=== PATIENT | female | born 1990 | race African-American/Black ===

== ENCOUNTER → 2018-02-06 19:20 | Outpatient (CLI) | payer OTHER, SELFPAY ==
[2018-02-09 14:56] LABS: HPV Reflexed? NOT INDICATED
== END ==
PROVIDERS: Visit Provider Obstetrics & Gynecology
DX: Z12.4 Encounter for screening for malignant neoplasm of cervix (principal)
CPT/HCPCS: 88175; G0145

== ENCOUNTER → 2019-02-07 | Outpatient (CLI) | payer OTHER, SELFPAY ==
[2016-12-20 10:01] VITALS: BMI 42.8
[2019-02-12 16:20] LABS: HPV Reflexed? NOT INDICATED
== END | disposition home or self-care (01) ==
LOC: LABSPEC 15:05
PROVIDERS: Visit Provider Obstetrics & Gynecology
DX: Z12.4 Encounter for screening for malignant neoplasm of cervix (principal)
CPT/HCPCS: 88175; G0145

== ENCOUNTER → 2022-07-27 | Outpatient (CLI) | payer OTHER, SELFPAY ==
[2022-07-27 17:01] LABS: Hematocrit 37.1 % (37-47); Hemoglobin 11.7 g/dL (12.0-15.0); Mean Corp Hgb Conc 31.5 g/dL (32-36); Mean Corpuscular Hgb 29.3 pg (27.0-32.0); Mean Platelet Vol. 10.2 fl (6.2-12.0); Platelet Count 318 K/mm3 (150-450); RBC Distribution Width CV 11.9 % (11.6-14.6); RBC Distribution Width SD 40.8 fl (35.1-43.9); Red Blood Count 3.99 M/mm3 (4.2-5.4); White Blood Count 8.5 K/mm3 (4.4-11.0)
[2022-07-27 17:51] LABS: Estradiol 96.6 pg/mL; Follicle Stimulating Hormone 3.2 mIU/mL; Luteinizing Hormone 11.6 mIU/mL; Prolactin 8.8 ng/mL; T4 Free Direct 0.91 ng/dL (0.76-1.46); Thyroid Stim Hormone (TSH) 1.45 uIU/mL (0.358-3.74)
[2022-08-04 11:09] LABS: Testosterone, Free 0.32 ng/dL (0.10-0.85); Testosterone, Total 18 ng/dL (13-71)
[2022-08-04 17:11] LABS: DHEA Sulfate 93.6 ug/dL (84.8-378.0)
[2022-08-05 13:57] LABS: HPV Reflexed? NOT INDICATED
== END | disposition home or self-care (01) ==
LOC: WOBLAB 16:27
PROVIDERS: Visit Provider Student in an Organized Health Care Education/Training Program
DX: Z12.4 Encounter for screening for malignant neoplasm of cervix (principal); N93.9 Abnormal uterine and vaginal bleeding, unspecified
CPT/HCPCS: 36415; 82627; 82670; 83001; 83002; 84146; 84402; 84403; 84439; 84443; 85027; 88175; 82626; G0145

== ENCOUNTER → 2022-08-31 | Outpatient (CLI) | payer OTHER, SELFPAY ==
--- NOTE | 2022-08-31 11:45 | EMB_PTH ---
PATIENT: RENATO DE JESUS LOC: [facility] U#:[id number] AGE/SX: 32/F ROOM: RE08/31/[address]: Dr. Mary Hart DO : 1990 BED: DIS: 08/31/2022 SPEC #: [id number] RECD: 08/31/22 12:29 STATUS: STEVE RETeresa #: [id number] VALERIA: 08/31/22 11:[address]: Mary Hart DEPT: SURGICAL PATHOLOGY RECD BY: Cristy Rodríguez ENTERED: 09/01/22 11:50 SP TYPE: ENDOM BX/C TYSHAWN DR: Alina Primary Care Phys Tissues: Endometrium, NOS Procedures: Surgery Specimen Level IV HEADER OPERATION: Endometrial biopsy PRE-OP DIAGNOSIS: Abnormal uterine bleeding TISSUE SUBMITTED: Endometrial biopsy MICROSCOPIC DIAGNOSIS Endometrium, biopsy: Secretory endometrium. AM:genia 09/02/2022 MICROSCOPIC DESCRIPTION Slides are reviewed. GROSS DESCRIPTION Received in fixative is one container labeled with the patient's name and designated endometrial biopsy. The specimen consists of multiple irregular fragments of pink soft tissue that in aggregate measure 2.5 x 2.5 x 0.2 cm. The specimen is totally submitted in one cassette. / SJ:genia 09/01/2022 TC:5 CPT: 20930
== END | disposition home or self-care (01) ==
LOC: LABSPEC 12:21
PROVIDERS: Visit Provider Student in an Organized Health Care Education/Training Program
DX: N93.9 Abnormal uterine and vaginal bleeding, unspecified (principal)
CPT/HCPCS: 88305

== ENCOUNTER 2022-11-24 06:01 | Day surgery (SDC) | payer OTHER, SELFPAY ==
[2022-11-18 10:15] LABS: Hematocrit 37.8 % (37-47); Hemoglobin 12.1 g/dL (12.0-15.0); Mean Corpuscular Hgb 29.2 pg (27.0-32.0); Mean Corpuscular Volume 91.3 fL (81-99); Mean Platelet Vol. 10.2 fl (6.2-12.0); Platelet Count 271 K/mm3 (150-450); RBC Distribution Width CV 12.3 % (11.6-14.6); RBC Distribution Width SD 40.7 fl (35.1-43.9); Red Blood Count 4.14 M/mm3 (4.2-5.4); White Blood Count 6.2 K/mm3 (4.4-11.0)
[2022-11-24] VITALS (8 sets, daily range): BP systolic 112–138; BP diastolic 66–88; PULSE 53–71; RESP 16–18; TEMP 36.2–36.8; O2SAT 94–100; BMI 36.9
[2022-11-24 06:27] LABS: Internal QC Validated? YES +Cl - CLEAR BKGD; Pregnancy, Urine Negative Negative
[2022-11-24] MEDS: Lactated Ringers 1,000 ML 15 ML IV (06:39)
--- NOTE | 2022-11-24 06:58 | HP.PCM.OB_ITS ---
History and Physical Date of Admission: 11/24/22 HPI: 32-year-old female with dermoid cyst and desire for sterilization plan for laparoscopic left ovarian cystectomy, possible oophorectomy, bilateral salpingectomy, dilation curettage. Denies headache or vision changes, chest pain or shortness of breath, nausea or vomiting, fevers or chills, diarrhea or constipation. [employer] history: Medical history: Denies Surgical history: Denies Medications: Denies Family history: Denies history of blood clots or bleeding disorders Social history: Denies tobacco, alcohol, drug use Allergies: Macrobid causes rash Review of system: Negative otherwise stated above Physical exam: Blood pressure 112/67, heart rate 71, respiratory rate 18, temp 97.7 ?F, oxygen saturation 100% on room air General: No acute distress HEENT: Normal cephalic/atraumatic, PERRLA Cardiorespiratory: No increased effort, clear to auscultation bilaterally, re gular rate and rhythm Abdomen: Soft, nontender, nondistended Extremities: No edema Neurologic: Cranial nerves II through XII grossly intact Musculoskeletal: Strength 5 out of 5 throughout extremities Assessment/plan: 32-year-old female plan for laparoscopic left ovarian cystectomy, possible oophorectomy, bilateral salpingectomy and hysteroscopy and dilation and curettage for dermoid cyst and abnormal uterine bleeding. All risk, benefits, alternatives discussed with the patient. Risks include but are not limited to: Risk of bleeding to the point of transfusion, infection, injury to surrounding tissue including bowel/bladder/major abdominal vessels/uterine perforation, VTE, ICU admission, chance of mini laparotomy. Understands risk of regret and ectopic with salpingectomy. Patient aware and consented.
--- NOTE | 2022-11-24 07:30 | EMB_PTH ---
PATIENT: RENATO DE JESUS LOC: [facility] [place] U#:[id number] AGE/SX: 32/F ROOM: RE11/24/[address]: Dr. Mary Hart DO : 1990 BED: DIS: 11/24/2022 SPEC #: [id number] RECD: 11/24/22 10:14 STATUS: STEVE RETeresa #: [id number] VALERIA: 11/24/22 07:[address]: Mary Hart DEPT: SURGICAL PATHOLOGY RECD BY: Cristy Rodríguez ENTERED: 11/24/22 11:42 SP TYPE: ENDOM BX/C TYSHAWN DR: Dr. Irma Alcala MD Tissues: Endometrium, NOS Procedures: Surgery Specimen Level IV HEADER OPERATION: Diagnostic laparoscopic, lysis of adhesions, hysteroscopy D & C PRE-OP DIAGNOSIS: Dermoid cyst, abnormal bleeding TISSUE SUBMITTED: Endometrial curettings MICROSCOPIC DIAGNOSIS Endometrial curettings: Secretory endometrium. SJ:genia 11/25/2022 MICROSCOPIC DESCRIPTION Slides are reviewed. GROSS DESCRIPTION Received in fixative is one container labeled with the patient's name and designated endometrial curettings. The specimen consists of multiple irregular fragments of light aguilar soft tissue that in aggregate measure 2.5 x 2.5 x 0.3 cm. The specimen is totally submitted in one cassette. / ARACELIS:genia 11/24/2022 TC:4 CPT: 14851
--- NOTE | 2022-11-24 08:13 | PCM.OPRPT ---
Report of Operation Date of Procedure: 11/24/22 Pre-Operative Diagnosis: Abnormal uterine bleeding, dermoid cyst Post-Operative Diagnosis: Abnormal uterine bleeding, bilateral ovarian cysts, extensive colonic adhesions Surgery/Procedure Performed:: Hysteroscopy, dilation and curettage, laparoscopic lysis of adhesion Description of Surgical Findings:: Normal-appearing external genitalia, no uterine descensus. Thin endometrial lining. Intra-abdominally: Large bilateral ovarian cysts. Free right fallopian tube from cornua to fimbriated. Adhesion of left fallopian tube to left ovary. Omental adhesions to anterior abdominal wall. Bowel adhesions to left pelvic sidewall. Bowel adhesion to left ovarian cyst, directly bowel to cyst. Type of Anesthesia: General Specimen's removed: Endometrial curettings Estimated Blood Loss (mL): 10 cc Fluids Replaced: 1000 cc Description of Procedure: Indication/risk/benefits: 32-year-old female plan for laparoscopic left ovarian cystectomy, possible oophorectomy, bilateral salpingectomy and hysteroscopy and dilation and curettage for dermoid cyst and abnormal uterine bleeding.? All risk, benefits, alternatives discussed with the patient.? Risks include but are not limited to: Risk of bleeding to the point of transfusion, infection, injury to surrounding tissue including bowel/bladder/major abdominal vessels/uterine perforation, VTE, ICU admission, chance of mini laparotomy.? Understands risk of regret and ectopic with salpingectomy.? Patient aware and consented. Procedure: Patient taken the operating room and placed under general anesthesia. Patient placed in the dorsal lithotomy position prepped and draped in the usual sterile fashion. Marlow catheter placed. Weighted speculum placed posterior vagina and Key retractor used to visualize the cervix. Anterior lip of cervix grasped single-tooth tenaculum. Cervix sequentially dilated. Hysteroscope placed through cervical canal and inspection of endometrial cavity was completed noting bilateral tubal ostia and thin endometrial cavity. Hysteroscope removed. Curettage completed in 360 degree manner. Sargis manipulator placed. Weighted speculum removed. Gloves changed and attention turned to the anterior abdominal wall. Infraumbilical incision made with scalpel and trocar placed under direct visualization. Abdomen insufflated. Right and left lower quadrant trocars placed under direct visualization. Inspection of the abdominal cavity noted findings as above. Filmy adhesions noted of the left colon to left pelvic sidewall, lysed with laparoscopic scissors. Unable to remove left fallopian tube due to adhesions, therefore bilateral salpingectomy was not done at this time. Decision to abort procedure was made based on extensive colon adhesions. Abdomen desufflated, trocars removed. Skin closed with subcuticular stitch and skin glue. Sargis manipulator removed. Cervix hemostatic. Marlow catheter removed. At the end of the procedure all needle, lap, sponge counts were correct. Urine output: 400 cc clear urine Complications None
--- NOTE | 2022-11-24 08:24 | PCM.DC ---
Discharge Instructions Diet Discharge Diet: No restrictions Activity Discharge Activity: Return to Normal Activity and May Shower May resume sexual activity in: 2 weeks Weight Bearing Status: Weight bearing as tolerated Lifting Restrictions: No greater than 15 pounds Dressing / Incision Call your doctor if your incision/area has: Continuous Slow Oozing, Increased Pain/ Swelling, Increased Redness and Foul Smelling Discharge Call your doctor if you observe: Fever of 101 or Higher, Inability to urinate, Using more than 1 pad per hour, Shortness of breath, Chest pain, Calf discomfort and Uncontrolled pain Cleanse incision/area with: Soap & Water and Keep Dressing Clean & Dry Follow Up Care Please Follow Up With: Mary Hart DO When: 2 weeks post operative visit. Test Results: Test results from this visit will be discussed in further detail at your follow-up appointment, if applicable. Discharge Plan Admission Primary Reason for Your Visit: Laparoscopy and dilation and curettage Attending Provider: Mary Hart Primary Care Provider: Irma Alcala Discharge Orders/Prescriptions Prescriptions: New oxycodone 5 mg tablet 5 mg PO Q6H PRN (Reason: pain (scale score 7-10)) 3 Days Qty: 10 0RF Continued ibuprofen 600 mg Tablet 600 mg PO Q8H PRN (Reason: Pain) Referrals / Follow Up: Irma Alcala MD [Primary Care Provider] - Disposition Disposition (needs filled in before D/C Order can be placed): Home, Self Care
== END 2022-11-24 10:41 | disposition home or self-care (01) ==
LOC: SDC 06:01 → AC 06:03
PROVIDERS: Anesthesiology; PCP Family Medicine; Referring Provider Student in an Organized Health Care Education/Training Program; Visit Provider Student in an Organized Health Care Education/Training Program
PROC: (CPT 58559; principal; 2022-11-24 07:15)
DX: N93.9 Abnormal uterine and vaginal bleeding, unspecified (principal); D27.9 Benign neoplasm of unspecified ovary; Z90.722 Acquired absence of ovaries, bilateral; N73.6 Female pelvic peritoneal adhesions (postinfective)
CPT/HCPCS: 58559; 00952; 36415; 81025; 85027; 86850; 86900; 86901; 88305; J7120; J2405

== ENCOUNTER → 2023-01-31 | Outpatient (CLI) | payer OTHER, SELFPAY ==
[2023-01-31 14:38] LABS: Absolute Lymphocyte Count 2.33 X10^3/uL (0.83-4.51); Absolute Neutrophil Count 2.6 X10^3/uL (2.0-7.7); Basophil# 0.06 X10^3/uL; Basophil% 1.1 % (0-1); Eosinophil# 0.19 X10^3/uL; Eosinophils% 3.4 % (0-5); Hematocrit 36.6 % (37-47); Hemoglobin 11.8 g/dL (12.0-15.0); Lymphocyte # 2.33 X10^3/ul (0.83-4.51); Mean Corp Hgb Conc 32.2 g/dL (32-36); Mean Corpuscular Hgb 28.9 pg (27.0-32.0); Mean Corpuscular Volume 89.7 fL (81-99); Mean Platelet Vol. 10.4 fl (6.2-12.0); Monocyte# 0.32 X10^3/uL; Monocyte% 5.8 % (0-10); NRBC Flagged by Analyzer 0 % (0-5); Neutrophil # 2.64 X10^3/uL (2.7-7.7); Neutrophil % 47.5 % (47-70); Platelet Count 318 K/mm3 (150-450); RBC Distribution Width CV 11.9 % (11.6-14.6); RBC Distribution Width SD 38.6 fl (35.1-43.9); Red Blood Count 4.08 M/mm3 (4.2-5.4); White Blood Count 5.6 K/mm3 (4.4-11.0)
[2023-01-31 15:07] LABS: Ferritin 23 ng/mL (8-252); Thyroid Stim Hormone (TSH) 2.09 uIU/mL (0.358-3.74)
== END | disposition home or self-care (01) ==
LOC: BFHLAB 11:29
PROVIDERS: PCP Family Medicine; Visit Provider Family Medicine
DX: G43.109 Migraine with aura, not intractable, without status migrainosus (principal)
CPT/HCPCS: 36415; 82728; 84443; 85025

== ENCOUNTER → 2025-04-17 | Outpatient (CLI) | payer OTHER, SELFPAY ==
[2025-04-17 15:42] LABS: Cholesterol 231 mg/dL (<=200); Low Density Lipoprotein Calc. 132 mg/dL; Triglycerides 75 mg/dL; Very Low Density Lipoprotein 15 mg/dL (5-40); cholesterol:hdl ratio screen 2.76
== END | disposition home or self-care (01) ==
LOC: BFHLAB 13:17
PROVIDERS: PCP Family Medicine; Visit Provider Family Medicine
DX: Z00.00 Encounter for general adult medical examination without abnormal findings (principal)
CPT/HCPCS: 36415; 80061